=== PATIENT | male | born 1985 | race Caucasian/White ===

== ENCOUNTER 2017-02-23 14:16 | Emergency (ER) | payer SELFPAY ==
[2017-02-23 14:23] VITALS: BP_SYST 124
[2017-02-23 16:21] LABS: INFLUENZA A&B ANTIGEN SCREEN NEGATIVE FOR A & B (NEGATIVE)
[2017-02-23 16:48] LABS: STREPTOCOCCUS A SCREEN (RAPID) POSITIVE (NEGATIVE)
[2017-02-23] MEDS ORDERED: PENICILLIN G BENZATHINE 1.2 MMU/2 ML SYR IM ONE (17:00)
[2017-02-23] MEDS ORDERED: DEXAMETHASONE SOD PHOSPHATE 10 MG/ML VIAL IM ONE (17:00)
[2017-02-23] MEDS ORDERED: IBUPROFEN 800 MG TABLET PO ONE (17:00)
[2017-02-23 17:05] VITALS: BP_SYST 135
== END 2017-02-23 17:05 | disposition home or self-care (01) ==
LOC: SED 14:16
DX: J20.9 Acute bronchitis, unspecified (principal); J45.909 Unspecified asthma, uncomplicated; J02.0 Streptococcal pharyngitis; R03.0 Elevated blood-pressure reading, without diagnosis of hypertension; M54.9 Dorsalgia, unspecified; G89.29 Other chronic pain
CPT/HCPCS: 36415; 71045; 86403; 86710; 99285